=== PATIENT | female | born 1985 | race Caucasian/White ===

== ENCOUNTER 2016-08-29 04:12 | Emergency (ER) | payer SELFPAY ==
[~2016-08-29] VITALS: Ht 162.6 cm; Wt 77.2 kg
[~2016-08-29 04:12] MED LIST: PREN1CAP PO
[2016-08-29 04:15] VITALS: Ht 162.6 cm; Wt 77.2 kg
--- NOTE | 2016-08-29 04:37 | ERD ---
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 Patient's complaining of vaginal bleeding, and pelvic pain and cramping pain, 4/10 accompanying the vaginal bleeding. Patient's approximately 12 weeks , 3 para 2 0. Patient last ultrasound was one week ago, has a normal . Patient denies any flank pain. Patient denies hematuria or dysuria. Patient denies any fever or chills. Patient denies any nausea or vomiting. ROS All systems reviewed and are negative except as per history of present illness. Medications Home Meds Active Scripts Acetaminophen* (Tylophen*) 500 Mg Capsule, 1 CAP PO Q6H Y for PAIN AND OR ELEVATED TEMP, #20 CAP Prov:MITCHEL BURNS KEYBOARD INSTRUMENT REPAIRER 08/29/16 Reported Medications #57/Iron/Fa/Dss/Dha (EXTRA-VIRT PLUS DHA SOFTGEL) 1 Each Capsule, 1 EACH PO DAILY 08/09/13 Allergies Allergies: Coded Allergies: No Known Allergy (Unverified , 01/03/13) PMhx/Soc Medical and Surgical Hx: pt denies Medical Hx, pt denies Surgical Hx History of Surgery: No Anesthesia Reaction: No Hx Neurological Disorder: No Hx Respiratory Disorders: No Hx Cardiac Disorders: No Hx Psychiatric Problems: No Hx Miscellaneous Medical Probl: No Hx Alcohol Use: No Hx Substance Use: No Hx Tobacco Use: No FmHx Family History: No coronary disease, No diabetes, No other Physical Exam Vitals Vital Signs Date Time Temp Pulse Resp B/P Pulse Ox O2 Delivery O2 Flow Rate FiO2 08/29/16 07:03 98.3 74 19 127/85 100 Room Air 08/29/16 04:15 97.2 79 22 101/58 97 Physical Exam GENERAL: The patient is well developed and appropriate for usual state of health, in no apparent distress. CHEST: Clear to auscultation bilaterally. There are no rales, wheezes or rhonchi. HEART: Regular rate and rhythm. No murmurs, clicks, rubs or gallops. No S3 or S4. ABDOMEN: Soft, nontender and nondistended. Good bowel sounds. No rebound or guarding. No gross peritonitis. No gross organomegaly or masses. No Hair sign or McBurney point tenderness. BACK: No midline or flank tenderness. EXTREMITIES: Equal pulses bilaterally. There is no peripheral clubbing, cyanosis or edema. No focal swelling or erythema. Full range of motion. Grossly neurovascularly intact. NEURO: Alert and oriented. Cranial nerves 2-12 intact. Motor strength in all 4 extremities with 5/5 strength. Sensation grossly intact. Normal speech and gait. SKIN: There is no apparent rash or petechia. The skin is warm and dry. HEMATOLOGIC AND LYMPHATIC: There is no evidence of excessive bruising or lymphedema. No gross cervical, axillary, or inguinal lymphadenopathy. VAGINAL Moderate amount of blood in the vaginal vault, no cervical motion tenderness illness or adnexal tenderness noted. Result Diagram: 08/29/16 0445 Results 24 hrs Laboratory Tests Test 08/29/16 04:45 08/29/16 05:13 08/29/16 05:14 White Blood Count 4.810^3/ul Red Blood Count 3.8410^6/ul Hemoglobin 11.5g/dl Hematocrit 35.4% Mean Corpuscular Volume 92.2fl Mean Corpuscular Hemoglobin 29.9pg Mean Corpuscular Hemoglobin Concent 32.5g/dl Red Cell Distribution Width 13.2% Platelet Count 48152^3/UL Mean Platelet Volume 10.3fl Neutrophils % 47.8% Lymphocytes % 41.6% Monocytes % 9.4% Eosinophils % 0.8% Basophils % 0.2% Nucleated Red Blood Cells % 0.0/100WBC Neutrophils # 2.310^3/ul Lymphocytes # 2.010^3/ul Monocytes # 0.510^3/ul Eosinophils # 0.010^3/ul Basophils # 0.010^3/ul Nucleated Red Blood Cells # 0.010^3/ul Beta HCG, Quantitative 41356.0mIU/ml Bedside Urine pH (LAB) 7.0 Bedside Urine Protein (LAB) 1+ Bedside Urine Glucose (UA) Negative Bedside Urine Ketones (LAB) Negative Bedside Urine Blood 3+ Bedside Urine Nitrite (LAB) Negative Bedside Urine Leukocyte Esterase (L Negative Urine Color RED Urine Clarity SLIGHTLY CLOUDY Urine pH 8.0 Urine Specific Ellinger 1.005 Urine Ketones NEGATIVEmg/dL Urine Nitrite NEGATIVEmg/dL Urine Bilirubin NEGATIVEmg/dL Urine Urobilinogen NEGATIVEmg/dL Urine Leukocyte Esterase NEGATIVELeu/ul Urine Microscopic RBC > 182/HPF Urine Microscopic WBC 0/HPF Urine Squamous Epithelial Cells MODERATE/HPF Urine Hemoglobin 3+mg/dL Urine Glucose NEGATIVEmg/dL Urine Total Protein 1+mg/dl PROCEDURE: Obstetrical ultrasound. CLINICAL INDICATION: Vaginal bleeding. TECHNIQUE: Multiple sonographic images of the pelvis were obtained with transabdominal technique. Images were obtained with davis scale and color Doppler. COMPARISON: No prior studies are available for comparison. FINDINGS: There is an intrauterine gestational sac with a pole identified. heart tones of 139 beats per minute are identified. The crown-rump length averages 6.62 cm, compatible with 12 weeks and 6 days. The mean sac diameter averages 5.97 cm, compatible with 13 weeks and 1 day. A yolk sac is not visualized. No subchorionic collection is identified. There is no pelvic free fluid. Bilateral ovaries are not visualized. There is no suspicious adnexal mass identified. IMPRESSION: Single live intrauterine with an estimated gestational age of 13 weeks and 0 days, with an ultrasound JACINTO of 03/06/2017. Bilateral ovaries not visualized. .Boo Magaña MD, MD Date Time Electronically viewed and signed by .Boo Magaña MD, MD on 08/29/2016 05:22 .T/ CC: MITCHEL BURNS KEYBOARD INSTRUMENT REPAIRER Procedures/MDM Medical Decision Making: Patients vaginal bleeding is most likely consistent of possible threatened . Patient does not show any evidence of hypovolemic shock. Patients hemoglobin and hematocrit is stable. There is low suspicion for ectopic . SHARATH results show a viable 13 week BetaHCG Quantitative is appropriate for The patient is Rh+, does not need RhoGAM this time. There is no signs of symptoms of dehydration. There is low suspicion for sepsis. Patient appears well and is hemodynamically stable. Disposition: Home. Condition: Stable Prescription: Tylenol Instructions: Patient is advised to do bed rest, avoid heavy lifting, and avoid having sex until cleared by OB doctor. Patient is advised to follow up with OB doctor or here at the ER in 48 hours for reevaluation of symptoms, repeat beta HCG quantitative and ultrasound. Patient is advised that is symptoms are worst, severe bleeding, dizziness, severe abdominal pain, fever, worst signs and symptoms to return to the emergency department immediately. Departure Diagnosis: Primary Impression: Vaginal bleeding in patient at less than 20 weeks gestation Additional Impression: Intrauterine Condition: Stable Patient Instructions: Bleeding During Early Additional Instructions: Patient is advised to do bed rest, avoid heavy lifting, and avoid having sex until cleared by OB doctor. Patient is advised to follow up with OB doctor or here at the ER in 48 hours for reevaluation of symptoms, repeat beta HCG quantitative and ultrasound. Patient is advised that is symptoms are worst, severe bleeding, dizziness, severe abdominal pain, fever, worst signs and symptoms to return to the emergency department immediately. MITCHEL BURNS NP Aug 29, 2016 04:37
[2016-08-29 04:59] LABS: BASOPHILS % 0.2 % (0.0-2.0); EOSINOPHILS % 0.8 % (0.0-7.0); HEMATOCRIT 35.4 % (37.0-47.0); HEMOGLOBIN 11.5 g/dl (12.0-16.0); LYMPHOCYTES % 41.6 % (15.0-51.0); MEAN CORPUSCULAR HEMOGLOBIN 29.9 pg (29.0-33.0); MEAN CORPUSCULAR HGB CONC 32.5 g/dl (32.0-37.0); MEAN CORPUSCULAR VOLUME 92.2 fl (82.0-101.0); MEAN PLATELET VOLUME 10.3 fl (7.4-10.4); MONOCYTE # 0.5 10^3/ul (0.3-0.9); MONOCYTES % 9.4 % (0.0-11.0); NEUTROPHIL # 2.3 10^3/ul (1.6-7.5); NEUTROPHILS % 47.8 % (39.0-77.0); PLATELET COUNT 182 10^3/UL (140-415); RED BLOOD COUNT 3.84 10^6/ul (4.20-5.40); RED CELL DISTRIBUTION WIDTH 13.2 % (11.5-14.5); WHITE BLOOD COUNT 4.8 10^3/ul (4.8-10.8)
[2016-08-29 05:00] LABS: ADD SCAN DIFF NO
[2016-08-29 05:08] LABS: URINE BLOOD (Dip) POC 3+ (NEGATIVE)
--- NOTE | 2016-08-29 05:23 | RADRPT ---
PROCEDURE: Obstetrical ultrasound. CLINICAL INDICATION: Vaginal bleeding. TECHNIQUE: Multiple sonographic images of the pelvis were obtained with transabdominal technique. Images were obtained with davis scale and color Doppler. COMPARISON: No prior studies are available for comparison. FINDINGS: There is an intrauterine gestational sac with a pole identified. heart tones of 139 beat s per minute are identified. The crown-rump length averages 6.62 cm, compatible with 12 weeks and 6 days. The mean sac diameter averages 5.97 cm, compatible with 13 weeks and 1 day. A yolk sac i s not visualized. No subchorionic collection is identified. There is no pelvic free fluid. Bilateral ovaries are not visualized. There is no suspicious adnexal mass identified. IMPRESSION: Single live intrauterine with an estimated gestational age of 13 weeks and 0 days, with an ultrasound JACINTO of 03/06/2017. Bilateral ovaries not visualized. .Boo Magaña MD, MD Date Time Electronically viewed and signed by .Boo Magaña MD, on 08/29/2016 05:22 .T/
[2016-08-29] MEDS ORDERED: ACET500C5 PO (05:24)
[2016-08-29 06:01] LABS: ADD UMIC YES; UR ASCORBIC ACID NEGATIVE (NEGATIVE); UR BILIRUBIN (Dip) NEGATIVE (NEGATIVE); UR BLOOD (Dip) 3+ mg/dL (NEGATIVE); UR CLARITY SLIGHTLY CLOUDY (CLEAR); UR COLOR RED (YELLOW); UR GLUCOSE (Dip) NEGATIVE (NEGATIVE); UR KETONES (Dip) NEGATIVE (NEGATIVE); UR LEUKOCYTE ESTERASE (Dip) NEGATIVE Leu/ul (NEGATIVE); UR NITRITE (Dip) NEGATIVE (NEGATIVE); UR RBC > 182 /HPF (0-5); UR SPECIFIC GRAVITY (Dip) 1.005 (1.003-1.030); UR SQUAMOUS EPITHELIAL CELL MODERATE /HPF (FEW); UR TOTAL PROTEIN (Dip) 1+ mg/dl (NEGATIVE); UR UROBILINOGEN (Dip) NEGATIVE (NEGATIVE)
[2016-08-29 07:03] VITALS: BP 127/85; PULSE 74; RESP 19; TEMP 98.3
== END 2016-08-29 07:04 | disposition home or self-care (01) ==
LOC: FTE 04:12
DX: O20.9 Hemorrhage in early pregnancy, unspecified (principal); R10.2 Pelvic and perineal pain; Z3A.13 13 weeks gestation of pregnancy
CPT/HCPCS: 36415; 76801; 81001; 81003; 84702; 85025; 86900; 86901

== ENCOUNTER 2017-02-13 23:06 | Outpatient (CLI) | payer MEDICAID ==
[~2017-02-13] VITALS: Ht 152.4 cm; Wt 88.7 kg
[~2017-02-13 23:06] MED LIST changes: +ACET500C5 PO
[2017-02-13 23:19] VITALS: Ht 152.4 cm; Wt 88.7 kg
[2017-02-13 23:27] VITALS: BP 113/71; PULSE 87; RESP 17
--- NOTE | 2017-02-14 01:23 | RADRPT ---
PROCEDURE: LIMITED OBSTETRICAL ULTRASOUND, BIOPHYSICAL PROFILE CLINICAL INDICATION: 31 years of age, female. Early onset labor. TECHNIQUE: Multiple sonographic images of the pelvis were obtained. Transabdominal view of the gr avid uterus are available for review. The images were reviewed on a PACS workstation. COMPARISON: None available. FINDINGS: JACINTO March 01, 2017 EGA by JACINTO 37 weeks 6 days breathing movement = 2/2 tone = 2/2 motion = 2/2 Amniotic fluid = 2/2 JHON = 9.6 cm Single live intrauterine in cephalic presentation. heart rate measures 133 bpm. Fundal placenta, grade 2 . There is an echogenic cystic lesion in the placenta. IMPRESSION: 1. Single living fetus in cephalic presentation. 2. Biophysical profile = 8/8. 3. Amniotic fluid volume is low normal. JHON = 9.6 cm. 4. Fundal placenta grade 2. RPTAT: HCTS Physician Neyda Date Time Electronically viewed and signed by Physician Neyda on 02/14/2017 01:23 CS/
[2017-02-14 02:11] LABS: ADD UMIC YES; UR ASCORBIC ACID NEGATIVE (NEGATIVE); UR BACTERIA FEW /HPF (NONE SEEN); UR BILIRUBIN (Dip) NEGATIVE (NEGATIVE); UR BLOOD (Dip) 3+ mg/dL (NEGATIVE); UR CLARITY CLEAR (CLEAR); UR COLOR RED (YELLOW); UR GLUCOSE (Dip) NEGATIVE (NEGATIVE); UR KETONES (Dip) NEGATIVE (NEGATIVE); UR LEUKOCYTE ESTERASE (Dip) NEGATIVE Leu/ul (NEGATIVE); UR NITRITE (Dip) NEGATIVE (NEGATIVE); UR RBC 166 /HPF (0-5); UR SPECIFIC GRAVITY (Dip) 1.004 (1.003-1.030); UR SQUAMOUS EPITHELIAL CELL FEW /HPF (FEW); UR TOTAL PROTEIN (Dip) 2+ mg/dl (NEGATIVE); UR UROBILINOGEN (Dip) NEGATIVE (NEGATIVE)
[2017-02-14] MEDS ORDERED: HYDROCODONE/APAP (5/325) TAB ONE (03:23)
[2017-02-14] MEDS ORDERED: HYDROCODONE/APAP (5/325) TAB PO ONE (03:30)
[2017-02-14] MEDS ORDERED: NITROFURANTOIN (SR) 100 MG CAP PO ONE (05:00)
--- NOTE | 2017-02-14 05:04 | PN ---
Triage Information Date/Time Feb 14, 2017 Reason for visit: Uterine contractions Weeks of Gestation 37w 6d /Para 3/2 Diabetes: none Hypertention: none Additional information UC's since 1900 on 02/13 with spotting the day before and c/o dysuria. PMHx: none. PSHx: none. NKDA. Objective Vital Signs Date Time Temp Pulse Resp B/P Pulse Ox O2 Delivery O2 Flow Rate FiO2 02/13/17 23:27 98.4 87 17 113/71 Room Air Heart Rate: 130's Heart Rate Comments Accels to 160 bpm. No decels. Contractions: >10 Minutes Apart Results/Medications Results 24 hrs Laboratory Tests Test 02/13/17 23:50 Urine Color RED Urine Clarity CLEAR Urine pH 7.0 Urine Specific Benton 1.004 Urine Ketones NEGATIVE Urine Nitrite NEGATIVE Urine Bilirubin NEGATIVE Urine Urobilinogen NEGATIVE Urine Leukocyte Esterase NEGATIVE Urine Microscopic RBC 166 H Urine Microscopic WBC 4 Urine Squamous Epithelial Cells FEW Urine Bacteria FEW A Urine Hemoglobin 3+ H Urine Glucose NEGATIVE Urine Total Protein 2+ H Medications Current Medications Nitrofurantoin Macrocrystals (Macrobid) 100 mg ONCE ONCE PO ; Start 02/14/17 at 05:00; Stop 02/14/17 at 05:01; Status UNV Imaging Results BPP 8/8 with an JHON of 9.6 cm. VTX.60%/2/-2 and no change after ambulation. Disposition: Discharge Assessment/Plan A: IUP at 37w 6d. False labor. UTI. P: D/C home. Macrobid 100 BID x 7 days with the first dose given before she leaves. Labor precautions reviewed. ÁNGEL DE LA CRUZ MD Feb 14, 2017 05:04
== END 2017-02-14 05:20 | disposition home or self-care (01) ==
LOC: OBT 23:06 → L-D 23:07 → OBT 02-14 05:20
PROVIDERS: ATTEND Obstetrics & Gynecology
DX: O47.1 False labor at or after 37 completed weeks of gestation (principal); O23.43 Unspecified infection of urinary tract in pregnancy, third trimester; Z3A.37 37 weeks gestation of pregnancy
CPT/HCPCS: 76818; 81001; 87086

== ENCOUNTER 2017-02-21 10:45 | Inpatient (IN) | payer MEDICAID ==
[~2017-02-21] VITALS: Ht 152.4 cm; Wt 87.5 kg
[~2017-02-21 10:45] MED LIST changes: -ACET500C5 PO
[2017-02-21 11:08] VITALS: BP 117/72; PULSE 75; RESP 16
[2017-02-21] MEDS ORDERED: LACTATED RINGER'S 1,000 ML IV PRN (11:47)
[2017-02-21] MEDS ORDERED: LACTATED RINGER'S 1,000 ML IV SCH (11:47)
[2017-02-21] MEDS ORDERED: OXYTOCIN 30 UNITS/LR 500 ML IV PRN ×2 (12:00→19:30)
[2017-02-21] MEDS ORDERED: OXYTOCIN 30 UNITS/LR 500 ML IV SCH ×3 (12:00)
[2017-02-21] MEDS ORDERED: LIDOCAINE 1% (MPF) 30 ML INJ INJ PRN (12:00)
[2017-02-21] MEDS ORDERED: BUTORPHANOL 2 MG INJ IV PRN (12:00)
[2017-02-21] MEDS ORDERED: METHYLERGONOVINE 0.2 MG INJ IM PRN ×2 (12:00→19:30)
[2017-02-21] MEDS ORDERED: AMPICILLIN 2 GM/NS (PMX) 100 ML IV ONE (12:00)
[2017-02-21] MEDS ORDERED: IBUPROFEN 600 MG TAB PO PRN (12:00)
[2017-02-21] MEDS ORDERED: CARBOPROST 250 MCG INJ IM PRN ×2 (12:00→19:30)
[2017-02-21] MEDS ORDERED: HYDROCODONE/APAP (5/325) TAB PO PRN (12:00)
[2017-02-21] MEDS ORDERED: MISOPROSTOL 200 MCG TAB PR PRN ×2 (12:00→19:30)
--- NOTE | 2017-02-21 12:39 | CONS ---
Date/Time of Note Date/Time of Note DATE: 02/21/17 TIME: 12:32 Consultation Date/Type/Reason Admit Date/Time OB triage consult Feb 21, 2017 at 11:42 This patient is a 31 years old 3 para 2 0 with estimated date of confinement of March 01, 2017 which makes her 38 weeks and 6 days she came to triage complaining of possible premature rupture of the membrane . Nitrazine test was positive. .She is GBS positive, patient will be placed on antibiotic soon on pelvic examination the nitrogen test was positive lump ROM plus was positive , On pelvic examination cervix was 2 cm dilated, 70% effaced at -2 station and the membrane was ruptured. The plan would be; to admit her in the hospital and augment also to start penicillin for her GBS positive status. .. Reason for Consultation Laboratory Tests Test 02/21/17 10:54 Membranes Rupture POSITIVE Current Medications Medications (Trade) Dose Ordered Sig/Caren Route PRN Reason Start Time Stop Time Status Last Admin Dose Admin Lactated Ringer's 1,000 ml @ 125 mls/hr Q8H IV 02/21/17 11:47 Ampicillin 100 ml @ 100 mls/hr ONCE ONCE IV 02/21/17 12:00 02/21/17 12:59 Ampicillin 50 ml @ 100 mls/hr Q4H IV 02/21/17 16:00 Oxytocin/Lactated Ringer's 500 ml @ 0 mls/hr TITRATE IV 02/21/17 12:00 Butorphanol Tartrate (Stadol) 2 mg Q2H PRN IV PAIN 02/21/17 12:00 Lidocaine 30 ml 30 ml ONCE PRN INJ EPISIOTOMY/TEARING 02/21/17 12:00 Oxytocin/Lactated Ringer's 500 ml @ 500 mls/hr ONCE POST IV 02/21/17 12:00 Oxytocin/Lactated Ringer's 500 ml @ 125 mls/hr POST IV 02/21/17 12:00 Ibuprofen (Motrin) 600 mg ONCE PRN PO Mild Pain (Pain Score 1-3) 02/21/17 12:00 Acetaminophen/ Hydrocodone Bitart 2 tab 2 tab ONCE PRN PO Moderate to Severe Pain (4-10) 02/21/17 12:00 Lactated Ringer's 1,000 ml @ 2,000 mls/hr Q30M PRN IV PRE-EPIDURAL BOLUS 02/21/17 11:47 Oxytocin/Lactated Ringer's 500 ml @ 0 mls/hr ONCE PRN IV For Hemorrhage Management 02/21/17 12:00 Methylergonovine Maleate (Methergine) 0.2 mg ONCE PRN IM VAGINAL BLEEDING 02/21/17 12:00 Carboprost Tromethamine (Hemabate) 250 mcg ONCE PRN IM VAGINAL BLEEDING 02/21/17 12:00 Misoprostol (Cytotec) 1,000 mcg ONCE PRN CO VAGINAL BLEEDING 02/21/17 12:00 Constitutional: No chills, No diaphoresis, No disoriented, No febrile, No improved, No no complaints, No other, No poor po, No requiring IVF, No requiring O2 Eyes: No discharge, No no complaints, No other, No pain, No redness, No visual change ENT: No bleeding, No congestion, No discharge, No dysphagia, No no complaints, No other, No pain, No sore throat Respiratory: No cough, No no complaints, No other, No pain, No pleuritic pain, No shortness of breath, No sputum, No wheezing Cardiovascular: No chest pain, No edema, No lightheadedness, No no complaints, No orthopenea, No other, No palpitations, No paroxysmal nocturnal dyspnea Gastrointestinal: No blood, No constipation, No decreased appetite, No diarrhea , No flatus, No nausea, No no complaints, No other, No pain, No passing stool, No vomiting Genitourinary: other (As I mentioned she has evidence of rupture of membrane in the beginning of the contractions her cervix was 2 cm), No bleeding, No discharge, No dysuria, No flank pain, No hematuria, No no complaints Musculoskeletal: No back pain, No bone/joint pain, No neck pain, No no complaints, No other, No restricted range of motion, No swelling Skin: No bruising, No erythema, No laceration, No no complaints, No other, No pruritis, No rash, No skin lesions Neurologic: No confusion, No dizziness, No focal-weakness, No headache, No no complaints, No other, No seizure, No syncope Endocrine: No dry skin, No no complaints, No other, No polydypsia, No polyuria , No temp intolerance Additional Comments With these finding patient was admitted in the hospital for augmentation and delivery Social History Smoking Status: Never smoker Exam/Review of Systems Vital Signs Vitals Vital Signs Date Time Temp Pulse Resp B/P Pulse Ox O2 Delivery O2 Flow Rate FiO2 02/21/17 11:08 98.4 75 16 117/72 98 Room Air Results Results 24 hrs Laboratory Tests Test 02/21/17 10:54 Membranes Rupture POSITIVE H Medications Medications Current Medications Lactated Ringer's 1,000 ml @ 125 mls/hr Q8H IV ; Start 02/21/17 at 11:47 Ampicillin 100 ml @ 100 mls/hr ONCE ONCE IV ; Start 02/21/17 at 12:00; Stop 02/21/17 at 12:59 Ampicillin 50 ml @ 100 mls/hr Q4H IV ; Start 02/21/17 at 16:00 Oxytocin/Lactated Ringer's 500 ml @ 0 mls/hr TITRATE IV ; Start 02/21/17 at 12: 00 Butorphanol Tartrate (Stadol) 2 mg Q2H PRN IV PAIN; Start 02/21/17 at 12:00 Lidocaine (Xylocaine 1% (Mpf)) 30 ml ONCE PRN INJ EPISIOTOMY/TEARING; Start at 12:00 Ibuprofen (Motrin) 600 mg ONCE PRN PO Mild Pain (Pain Score 1-3); Start at 12:00 Acetaminophen/ Hydrocodone Bitart 2 tab 2 tab ONCE PRN PO Moderate to Severe Pain (4-10); Start 02/21/17 at 12:00 Lactated Ringer's 1,000 ml @ 2,000 mls/hr Q30M PRN IV PRE-EPIDURAL BOLUS; Start 02/21/17 at 11:47 Oxytocin/Lactated Ringer's 500 ml @ 0 mls/hr ONCE PRN IV For Hemorrhage Management; Start 02/21/17 at 12:00 Methylergonovine Maleate (Methergine) 0.2 mg ONCE PRN IM VAGINAL BLEEDING; Start 02/21/17 at 12:00 Carboprost Tromethamine (Hemabate) 250 mcg ONCE PRN IM VAGINAL BLEEDING; Start 02/21/17 at 12:00 Misoprostol (Cytotec) 1,000 mcg ONCE PRN CO VAGINAL BLEEDING; Start 02/21/17 at 12:00 MARLO KRAFT MD Feb 21, 2017 12:39
[2017-02-21 13:48] LABS: BASOPHILS % 0.2 % (0.0-2.0); EOSINOPHILS % 0.8 % (0.0-7.0); HEMATOCRIT 35.3 % (37.0-47.0); HEMOGLOBIN 11.7 g/dl (12.0-16.0); LYMPHOCYTES # 1.5 10^3/ul (0.8-2.9); LYMPHOCYTES % 29.6 % (15.0-51.0); MEAN CORPUSCULAR HEMOGLOBIN 29.2 pg (29.0-33.0); MEAN CORPUSCULAR HGB CONC 33.1 g/dl (32.0-37.0); MEAN PLATELET VOLUME 10.9 fl (7.4-10.4); MONOCYTE # 0.3 10^3/ul (0.3-0.9); MONOCYTES % 6.5 % (0.0-11.0); NEUTROPHIL # 3.2 10^3/ul (1.6-7.5); NEUTROPHILS % 62.3 % (39.0-77.0); PLATELET COUNT 190 10^3/UL (140-415); RED BLOOD COUNT 4.01 10^6/ul (4.20-5.40); RED CELL DISTRIBUTION WIDTH 14.6 % (11.5-14.5); WHITE BLOOD COUNT 5.1 10^3/ul (4.8-10.8)
[2017-02-21 14:12] LABS: INR 0.86; PROTIME 11.8 Sec (11.9-14.9); PT RATIO 0.9
[2017-02-21] MEDS ORDERED: AMPICILLIN 1 GM/NS (PMX) 50 ML IV SCH (16:00)
--- NOTE | 2017-02-21 18:04 | LDN ---
Date/Time of Note Date/Time of Note DATE: 02/21/17 TIME: 17:58 Delivery Summary February 21, 2017 Spontaneous vaginal delivery ..This patient is 30 years old 3 para 2 with estimated date of confinement of March 01, 2016 which makes her 38 weeks and 6 days she was admitted in the hospital with rupture of membrane and in labor ,she gradually made progress to complete dilatation antibiotic (ampicillin) was given to her and eventually she had a spontaneous vaginal delivery today , the was female ,with score of 3 in 1 minute 9 at 5 minutes There was a loop of cord around the neck the weight of the baby was a 7 pounds and 1 ounces, score was 3 and 1 minute 9 in 5 minutes Weeks of Gestation 39 weeks Placenta Delivered: Spontaneously Meconium: Light Episiotomy: No Estimated blood loss: 200 Sponge & Needle done & correct: Yes All needle counts correct: Yes Any foreign bodies felt in the: No Problems: Delivery Information Apgars 1 Minute: 3 5 Minute: 9 Suctioning Nose & mouth suctioned at adele: Yes Delee suction performed: Yes Umbilical Cord Umbilical cord with: 3 Vessels Cord presentations: nuchal cord Nuchal cord present X: 1 Cord Blood was obtained: Yes Mother & Baby Disposition Disposition Mom & Baby to Maternity; Good: Yes Mom transferred to: Med/Surg Baby to NICU: No MARLO KRAFT MD Feb 21, 2017 18:04
[2017-02-21] MEDS: OXYTOCIN 30 UNITS/LR 500 ML IV SCH ×2 (19:23→23:57)
[2017-02-21] MEDS ORDERED: BENZOCAINE 20% 56 ML SPRAY TOP PRN (19:30)
[2017-02-21] MEDS ORDERED: DIBUCAINE 1% 30 GM OINT TOP PRN (19:30)
[2017-02-21] MEDS ORDERED: OXYCODONE/ASPIRIN (4.88/325) TAB PO PRN ×2 (19:30)
[2017-02-21] MEDS ORDERED: LANOLIN 7 GM TUBE TOP PRN (19:30)
[2017-02-21] MEDS ORDERED: ACETAMINOPHEN 500 MG TAB PO PRN (19:30)
[2017-02-21] MEDS ORDERED: WITCH HAZEL/GLYCERIN PAD PR PRN (19:30)
[2017-02-21] MEDS ORDERED: SENNA/DOCUSATE NA (8.6MG/50MG) TAB PO PRN (19:30)
[2017-02-21 20:15] VITALS: BP 112/60; PULSE 74; RESP 18
[2017-02-22] VITALS: BP 109/63; PULSE 71; RESP 17
[2017-02-22] MEDS: IBUPROFEN 600 MG TAB PO PRN ×3 (00:14→23:21)
[2017-02-22] MEDS: OXYTOCIN 30 UNITS/LR 500 ML IV SCH ×6 (03:23→23:23)
[2017-02-22 03:41] VITALS: BP 100/52; PULSE 71; RESP 17
[2017-02-22 08:36] VITALS: BP 103/50; PULSE 83; RESP 18
[2017-02-22 08:50] LABS: BASOPHILS % 0.3 % (0.0-2.0); EOSINOPHILS % 0.4 % (0.0-7.0); HEMATOCRIT 36.8 % (37.0-47.0); HEMOGLOBIN 12.2 g/dl (12.0-16.0); LYMPHOCYTES # 2.4 10^3/ul (0.8-2.9); LYMPHOCYTES % 30.8 % (15.0-51.0); MEAN CORPUSCULAR HEMOGLOBIN 29.1 pg (29.0-33.0); MEAN CORPUSCULAR HGB CONC 33.2 g/dl (32.0-37.0); MEAN CORPUSCULAR VOLUME 87.8 fl (82.0-101.0); MEAN PLATELET VOLUME 10.8 fl (7.4-10.4); MONOCYTE # 0.6 10^3/ul (0.3-0.9); MONOCYTES % 7.8 % (0.0-11.0); NEUTROPHIL # 4.7 10^3/ul (1.6-7.5); NEUTROPHILS % 60.2 % (39.0-77.0); PLATELET COUNT 207 10^3/UL (140-415); RED BLOOD COUNT 4.19 10^6/ul (4.20-5.40); RED CELL DISTRIBUTION WIDTH 14.8 % (11.5-14.5); WHITE BLOOD COUNT 7.7 10^3/ul (4.8-10.8)
--- NOTE | 2017-02-22 09:53 | DS ---
Date/Time of Note Date/Time of Note DATE: 02/22/17 TIME: 09:51 Obstetrical Discharge Record Final Diagnosis Final Diagnosis: Term delivered Other Final Diagnosis iup at term prom Vaginal Delivery Obstetrical Delivery: Spontaneous Complications Complications: less than 4 at 1 mins Complications Other (premature rupture of membrane) Augmentation: No Induction: Yes Rupture of Membranes: Yes Gestational Age at Rupture 38 wks 6 days Condition on Discharge Physical Assessment Last Vitals: stable afebrile Voiding: Yes Bowel Movement: Yes Breast: Soft, non-tender, Filling Fundus: Firm Calf Tenderness: No Patient Condition: ASAF Kunz MD Feb 22, 2017 09:53
--- NOTE | 2017-02-22 09:54 | PD.PPDC ---
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
[2017-02-22 15:27] VITALS: BP 95/55; PULSE 74; RESP 17
[2017-02-22 20:00] VITALS: BP 110/61; PULSE 72; RESP 20
[2017-02-23] MEDS: OXYTOCIN 30 UNITS/LR 500 ML IV SCH ×3 (03:23→13:46)
[2017-02-23 04:24] VITALS: BP 98/60; PULSE 70; RESP 20
[2017-02-23 08:00] VITALS: BP 107/54; PULSE 68; RESP 18
[2017-02-23] MEDS ORDERED: DIPHTH/TET/ACEL PERTUSS (ADULT) 0.5 ML VIAL IM* ONE (09:00)
[2017-02-23] MEDS: IBUPROFEN 600 MG TAB PO PRN (12:01)
== END 2017-02-23 13:20 | disposition home or self-care (01) | DRG 775 ==
LOC: L-D 10:45 → OBT 10:45 → L-D 11:42 → OBT 11:44 → L-D 12:04 → PP1 20:40
PROVIDERS: ADMIT Obstetrics & Gynecology; ATTEND Obstetrics & Gynecology
PROC: 10E0XZZ Delivery of Products of Conception, External Approach (ICD-10-PCS; principal; 2017-02-21)
DX: O99.824 Streptococcus B carrier state complicating childbirth (principal); O69.81X0 Labor and delivery complicated by cord around neck, without compression, not applicable or unspecified; Z37.0 Single live birth; Z3A.38 38 weeks gestation of pregnancy
CPT/HCPCS: 84112; 85025; 85610; 85730; 86592; 86850; 86900; 86901; 87340; 90715; 99464; G0463; J0290; J0595; J2590; J7120

== ENCOUNTER 2017-05-09 11:14 | Day surgery (SDC) | END 2017-05-09 15:00 | disposition home or self-care (01) ==